=== PATIENT | female | born 1955 | race Caucasian/White ===

== ENCOUNTER 2017-07-27 12:53 | Outpatient (CLI) | payer OTHER ==
--- NOTE | 2017-07-27 15:30 | RAD ---
TWO VIEWS LUMBAR SPINE: Date: 07-27-17 Comparison: None. History: Fall, trauma, pain, T12 fracture. FINDINGS: T12 vertebral body is not fully imaged on this exam. L1 through L5 vertebral bodies demonstrate singh l height. There is mild anterolisthesis of L4 on L5 measuring 4 mm. There is lower lumbar spine facet hypertrophy. IMPRESSION: No lumbar spine fracture seen. POS: BUTCH
--- NOTE | 2017-07-27 16:08 | RAD ---
THORACIC SPINE TWO VIEWS: HISTORY: Fracture. COMPARISON: Outside facility CT from 06/11/2017. FINDINGS: Mild interval height loss of the T12 burst fracture. There is mild retropulsion with fragmentation. No new acute superimposed fracture or malalignment. IMPRESSION: Mild height loss at T12 burst fracture. POS: RIANA
== END 2017-07-27 12:54 | disposition home or self-care (01) ==
LOC: TBSIIMAG 12:53
PROVIDERS: ATTEND Surgery
DX: M54.5 Low back pain (principal); M54.6 Pain in thoracic spine; S22.081A Stable burst fracture of T11-T12 vertebra, initial encounter for closed fracture; M48.8X4 Other specified spondylopathies, thoracic region
CPT/HCPCS: 72070; 72100

== ENCOUNTER 2017-08-24 12:45 | Outpatient (CLI) | payer OTHER ==
--- NOTE | 2017-08-24 14:35 | RAD ---
LUMBAR SPINE 3 VIEWS: Date: 08/24/17 HISTORY: [id number], unspecified thoracic vertebra. Follow-up. COMPARISON: Lumbar spine dated 07/27/17. FINDINGS: Lumbar spine is intact. No fracture. No malalignment. There is a T12 compression deformity. IMPRESSION: 1. T12 compression deformity. Recommend correlating with the thoracic spine radiographs. 2. No acute fracture or malalignment of the lumbar spine. POS: RIANA
--- NOTE | 2017-08-24 14:45 | RAD ---
THORACIC SPINE 3 VIEWS: Date: 08/24/17 HISTORY: Back pain. Follow-up. COMPARISON: 07/27/17. FINDINGS: There are 12 thoracic-type vertebrae. S-shaped rotatory scoliotic curvature is again demonstrated. Co mpression of the left side of the T12 vertebral body by approximately 30% is not significantly change d from the previous exam. Osteophytosis throughout the facets is similar in appearance to the prior s tudy. IMPRESSION: T12 compression fracture, stable. POS: BUTCH
== END 2017-08-24 12:46 | disposition home or self-care (01) ==
LOC: TBSIIMAG 12:45
PROVIDERS: ATTEND Surgery
DX: S22.088D Other fracture of T11-T12 vertebra, subsequent encounter for fracture with routine healing (principal)
CPT/HCPCS: 72070; 72100

== ENCOUNTER 2022-01-21 17:30 | Outpatient (CLI) | payer BC, OTHER | END 2022-01-21 17:31 | disposition home or self-care (01) | LOC: SLEEPLAB 17:30 | PROVIDERS: ATTEND Internal Medicine Critical Care Medicine | DX: G47.33 Obstructive sleep apnea (adult) (pediatric) (principal); R53.83 Other fatigue; R09.89 Other specified symptoms and signs involving the circulatory and respiratory systems; R06.83 Snoring; K21.9 Gastro-esophageal reflux disease without esophagitis; G47.00 Insomnia, unspecified; R00.2 Palpitations; I10 Essential (primary) hypertension | CPT/HCPCS: 95800 ==